=== PATIENT | male | born 2000 | race Caucasian/White ===

== ENCOUNTER 2024-01-05 14:42 | Emergency (ER) | payer BC, SELFPAY ==
[2024-01-05] MEDS ORDERED: Dexamethasone 4 MG TAB ONE (15:26)
[2024-01-05] MEDS ORDERED: Ketorolac Tromethamine 30 MG (1 mL) VIAL ONE (15:26)
== END 2024-01-05 15:20 | disposition home or self-care (01) ==
LOC: CSHERS 14:42
DX: S46.912A Strain of unspecified muscle, fascia and tendon at shoulder and upper arm level, left arm, initial encounter (principal); X58.XXXA Exposure to other specified factors, initial encounter
CPT/HCPCS: 96372; 99283; J1885; J8540